=== PATIENT | female | born 1945 | race Caucasian/White ===

== ENCOUNTER 2025-01-30 20:48 | Emergency (ER) | payer MEDICARE, OTHER ==
[2025-01-30] MEDS ORDERED: Dexamethasone 10 MG/ML VIAL ONE (21:19)
== END 2025-01-30 23:30 | disposition home or self-care (01) ==
LOC: CSHERS 20:48
DX: S46.911A Strain of unspecified muscle, fascia and tendon at shoulder and upper arm level, right arm, initial encounter (principal); M75.51 Bursitis of right shoulder; I10 Essential (primary) hypertension; X58.XXXA Exposure to other specified factors, initial encounter
CPT/HCPCS: 72125; 73030; 93005; 93971; 96372; 99284; J1100

== ENCOUNTER 2025-03-13 17:54 | Emergency (ER) | payer MEDICARE, OTHER ==
[2025-03-13 19:41] LABS: Glucose, Urine (Dipstick) Normal (Negative); Leukocyte Negative (Negative); Protein, Urine (Dipstick) Negative (Neg-Trace); Specific Gravity, Urine 1.020 (1.005-1.030)
[2025-03-13 19:42] LABS: #Basophils 0.07 10x3/uL (0.0-0.2); #Eosinophils 0.19 10x3/uL (0.0-0.5); #Monocytes 0.98 10x3/uL (0.0-1.1); #Neutrophils 4.71 10x3/uL (1.5-8.4); %Basophils 0.8 % (0.0-2.0); %Eosinophils 2.3 % (0.0-6.0); %Lymphocytes 28.9 % (18.0-47.0); %Monocytes 11.7 % (0.0-10.0); %Neutrophils 56.1 % (40.0-75.0); Hematocrit 37.9 % (34.9-44.5); Hemoglobin 12.9 g/dL (12.0-15.5); Mean Corpuscular Hemoglobin 31.0 pg (27.0-33.0); Mean Corpuscular Volume 91.1 fL (81.6-98.3); Platelet Count 345 10x3/uL (150-450); Red Blood Cell (RBC) Count 4.16 10x6/uL (3.90-5.03); White Blood Cell (WBC) Count 8.40 10x3/uL (3.5-10.5)
[2025-03-13 20:02] LABS: Bacteria/HPF Rare-Few HPF (None Seen); CAUTI Indications for Culture Pelvic or flank pain; RBC/HPF None Seen HPF (0-3); WBC/HPF None Seen HPF (0-3)
[2025-03-13 20:03] LABS: Urine Culture Reflex No No
[2025-03-13 20:16] LABS: ALT (SGPT) 22 U/L (Less than 34); AST (SGOT) 55 U/L (11-34); Albumin 4.1 g/dL (3.1-4.5); Alkaline Phosphatase 99 U/L (40-110); Anion Gap 13 mmol/L (10-20); BUN (Urea Nitrogen) 26 mg/dL (9.8-20.1); Bilirubin, Total 0.3 mg/dL (0.3-1.2); Calc. Creatinine Clearance 0 mL/min (70-130); Calcium 10.6 mg/dL (7.8-10.44); Carbon Dioxide 26 mmol/L (23-31); Chloride 103 mmol/L (98-107); Globulin 3.6 g/dL (2.4-3.5); Glucose 97 mg/dL (83-110); Lipase 29 U/L (8-78); Potassium 3.9 mmol/L (3.5-5.1); Sodium 138 mmol/L (136-145)
[2025-03-13] MEDS ORDERED: Ketorolac Tromethamine 30 MG (1 mL) VIAL ONE (21:04)
== END 2025-03-13 21:30 | disposition home or self-care (01) ==
LOC: CSHERS 17:54
DX: M54.50 Low back pain, unspecified (principal); N23 Unspecified renal colic; N20.1 Calculus of ureter; I10 Essential (primary) hypertension
CPT/HCPCS: 72131; 74176; 80053; 81001; 83690; 85025; J1100; J1885; J3360; 36415; 96374; 96375